=== PATIENT | male | born 1960 | race Caucasian/White ===

== ENCOUNTER 2016-05-21 11:22 | Emergency (ER) | payer OTHER ==
[2016-05-21 11:33] VITALS: BP 138/80; PULSE 97; TEMP 98.2; BMI 29.2
--- NOTE | 2016-05-21 11:42 | PDOC ---
History of Present Illness <Tato Dickinson - Last Filed: 05/21/16 12:30> - History of Present Illness Initial Comments: 05/21/16 12:58 The patient is a 56 year old male, with a significant past medical history of prostate CA and hypothyroidism, who presents to the emergency department with abdominal distention and in urinary retention since yesterday. The patient reports he has not urinated since 6pm last night. He states he is experiencing pain to his lower abdomen. The patient reports he was seen by Dr. aJcobo a week ago and is scheduled for a biopsy next week. He denies chest pain, shortness of breath, headache and dizziness. He denies fever, chills, nausea, vomit, diarrhea and constipation. He denies dysuria, urgency and hematuria. Allergies: NKDA Social history: denies toxic habits Armored Truck Driver: Dr. Jacobo Urologist: Dr. Polo <Dianne Brito - Last Filed: 05/21/16 13:03> - General Chief Complaint: Urinary Problem Stated Complaint: PAIN Time Seen by Provider: 05/21/16 11:40 Past History - Past Medical History Cancer: Yes (PROSTATE CA) Seizures: Yes - Psycho/Social/Smoking Cessation Hx Suicidal Ideation: No Smoking History: Never smoked Hx Alcohol Use: No Drug/Substance Use Hx: No <Tato Dickinson - Last Filed: 05/21/16 12:30> <Dianne Brito - Last Filed: 05/21/16 13:03> - Past Medical History Allergies/Adverse Reactions: Allergies Allergy/AdvReac Type Severity Reaction Status Date / Time No Known Allergies Allergy Verified 05/21/16 11:33 Review of Systems - Review of Systems Able to Perform ROS?: Yes Comments:: 05/21/16 12:58 GENERAL/CONSTITUTIONAL: No fever or chills. No weakness. HEAD, EYES, EARS, NOSE AND THROAT: No change in vision. No ear pain or discharge. No sore throat. CARDIOVASCULAR: No chest pain or shortness of breath. RESPIRATORY: No cough, wheezing, or hemoptysis. GASTROINTESTINAL: (+) lower abdominal pain. No nausea, vomiting, diarrhea or constipation. GENITOURINARY: (+) urinary retention, No dysuria, frequency, or change in urination. MUSCULOSKELETAL: No joint or muscle swelling or pain. No neck or back pain. SKIN: No rash NEUROLOGIC: No headache, vertigo, loss of consciousness, or change in strength/ sensation. ENDOCRINE: No increased thirst. No abnormal weight change. HEMATOLOGIC/LYMPHATIC: No anemia, easy bleeding, or history of blood clots. ALLERGIC/IMMUNOLOGIC: No hives or skin allergy. <Dianne Brito - Last Filed: 05/21/16 13:03> *Physical Exam - Vital Signs Last Vital Signs Temp Pulse Resp BP Pulse Ox 98.2 F 97 H 18 138/80 99 05/21/16 11:30 05/21/16 11:30 05/21/16 11:30 05/21/16 11:30 05/21/16 11:30 <Tato Dickinson - Last Filed: 05/21/16 12:30> - Vital Signs Last Vital Signs Temp Pulse Resp BP Pulse Ox 98.2 F 97 H 18 138/80 99 05/21/16 11:30 05/21/16 11:30 05/21/16 11:30 05/21/16 11:30 05/21/16 11:30 - Physical Exam Comments: 05/21/16 12:58 GENERAL: Pt appears very uncomfortable. Awake, alert, and fully oriented, in no acute distress HEAD: No signs of trauma EYES: PERRLA, EOMI, sclera anicteric, conjunctiva clear ENT: Auricles normal inspection, hearing grossly normal, nares patent, oropharynx clear without exudates. Moist mucosa NECK: Normal ROM, supple, no lymphadenopathy, JVD, or masses LUNGS: Breath sounds equal, clear to auscultation bilaterally. No wheezes, and no crackles HEART: Regular rate and rhythm, normal S1 and S2, no murmurs, rubs or gallops ABDOMEN:(+) distended abdomen is mildly tender. Soft, normoactive bowel sounds. No guarding, no rebound. No masses EXTREMITIES: Normal range of motion, no edema. No clubbing or cyanosis. No cords, erythema, or tenderness NEUROLOGICAL: Cranial nerves II through XII grossly intact. Normal speech, normal gait SKIN: Warm, Dry, normal turgor, no rashes or lesions noted. <Dianne Brito - Last Filed: 05/21/16 13:03> Medical Decision Making - Medical Decision Making 05/21/16 12:09 The patient is a 56 year old male who presents in urinary retention with abdominal distention since yesterday. The patients medical history is significant for Prostate CA and hypothyroidism I will obtain bladder scan. Bauer catheterization was attempted five times without success. I have called the patients oncologist, Dr. Jacobo, to determine whether or not the patients urologist will come see the patient in the ER. I will call the patients parts salesman/oncologist for urologist consult suggestion. Dr. Jacobo, patient's hemtologist, was called at 12:10 on the office phone ). I was informed Dr. Jacobo is at his other office today and was given the number to reach him. Dr. Jacobo was called at 12:12 at his [place] office ([phone]). After a few attempts Dr. Jacobo was contacted and the patient's case was discussed at 12:19. Dr. Jacobo was informed of the 5 failed attempts at bauer catheterization, and Dr. Jacobo states the patient's urologist, Dr. Polo, does not come to [facility]. Dr. Jacobo requests we contact our on-call urologist for bauer insertion and that we call Dr. Jacobo with updates regarding his patient. 05/21/16 12:24 Dr. Kelley, urologist on-call, was called at the office at 12:24 and the patient 's case was discussed. Dr. Lamas agrees to see the patient in the office as out-patient care. Dr. Jacobo was called at 12:30 with the updates the the patient's plan of care. Dr. Jacobo agrees with the plan of care with outpatient referral to Dr. Lamas and appreciated being kept informed. <Dianne Brito - Last Filed: 05/21/16 13:03> *DC/Admit/Observation/Transfer - Discharge Dispostion Admit: No - Attestations Physician Attestion: 05/21/16 11:41 I, Dr. Tato Dickinson, attest that this document has been prepared under my direction and personally reviewed by me in its entirety. I further attest, that it accurately reflects all work, treatment, procedures and medical decision -making performed by me. <Ttao Dickinson - Last Filed: 05/21/16 12:30> - Attestations Scribe Attestion: 05/21/16 13:03 Documentation prepared by Dianne Brito, acting as medical assistant for Tato Dickinson MD <Dianne Brito - Last Filed: 05/21/16 13:03> Diagnosis at time of Disposition: Acute urinary retention, Prostate CA - Referrals Referrals: Joseph Lombardi [Primary Care Provider] - Bari Lamas MD., [Staff Physician] - - Patient Instructions Printed Discharge Instructions: Prostate Cancer, DI for Urinary Retention in Men Additional Instructions: Raudel- Your Urologist does not come here to [facility]. We need a urologist to place the catheter to drain your bladder. Dr Bari Lamas is in his office across the street and can see you now. GO DIRECTLY TO HIS OFFICE NOW. Follow his instructions for follow up. He is expecting you.
[2016-05-21] MEDS ORDERED: LIDOCAINE HCL 2% JELLY 10 ML CARTRIDGE ONE (11:45)
[2016-05-21] MEDS ORDERED: morphine CARPU-JECT 4 MG/1 ML DISP.SYRIN ONE (12:09)
[2016-05-21] MEDS ORDERED: ONDANSETRON 4 MG/2 ML VIAL ONE (12:10)
[2016-05-21] MEDS ORDERED: ONDANSETRON 4 MG/2 ML VIAL IVPUSH ONE (12:28)
[2016-05-21] MEDS ORDERED: morphine CARPU-JECT 4 MG/1 ML DISP.SYRIN IVPUSH ONE (12:28)
== END 2016-05-21 13:09 | disposition home or self-care (01) ==
LOC: JER 11:22
PROC: 0T9B70Z Drainage of Bladder with Drainage Device, Via Natural or Artificial Opening (ICD-10-PCS; principal; 2016-05-21)
DX: N40.1 Benign prostatic hyperplasia with lower urinary tract symptoms (principal); C61 Malignant neoplasm of prostate; R33.8 Other retention of urine; E03.9 Hypothyroidism, unspecified
CPT/HCPCS: 99282-25

== ENCOUNTER 2016-06-18 06:35 | Day surgery (SDC) | payer OTHER ==
[2016-06-17 12:04] VITALS: BMI 29.2
[2016-06-18] MEDS ORDERED: PROPOFOL 20 ML ONE (07:30)
[2016-06-18] MEDS ORDERED: MIDAZOLAM HCL 2 MG/2 ML SINGLE DOSE VIAL ONE ×2 (07:30→09:01)
[2016-06-18] MEDS ORDERED: ceFAZolin SODIUM 1 GM VIAL IVPB ONE (08:24)
[2016-06-18] MEDS ORDERED: GENTAMICIN SO4 80 MG/2 ML VIAL IVPB ONE (08:24)
[2016-06-18] MEDS ORDERED: GENTAMICIN SO4 80 MG/2 ML VIAL ONE (08:28)
[2016-06-18] MEDS ORDERED: FUROSEMIDE 40 MG/4 ML INJECTABLE VIAL ONE (09:37)
[2016-06-18] MEDS ORDERED: oxyCODONE HCL 5 MG TABLET PO PRN (10:09)
--- NOTE | 2016-06-18 10:13 | OP ---
Operative Note - Note: Operative Date: 06/18/16 Pre-Operative Diagnosis: BPH with retention Operation: cysto/bipolar transurethral vaporization of prostate Findings: trilobar hyperplasia Post-Operative Diagnosis: Same as Pre-op Surgeon: Mckinley Canela Anesthesia: Spinal Estimated Blood Loss (mls): 25 Drains & Tubes with Location: 18fr coucil tip Operative Report Dictated: Yes
[2016-06-18] MEDS ORDERED: ELECTROLYTE-148 SOLN 1,000 ML IV SCH (10:15)
[2016-06-18] MEDS ORDERED: ONDANSETRON 4 MG/2 ML VIAL IVPUSH PRN (10:41)
[2016-06-18] MEDS ORDERED: ACETAMINOPHEN 325 MG TABLET (FP) PO PRN (10:41)
--- NOTE | 2016-06-19 09:01 | OP ---
DATE OF OPERATION: 06/18/2016 PREOPERATIVE DIAGNOSIS: Benign prostatic hypertrophy with urinary retention. POSTOPERATIVE DIAGNOSIS: Benign prostatic hypertrophy with urinary retention. PROCEDURE: Cystoscopy, transurethral vaporization of prostate. SURGEON: Mckinley Canela MD INDICATIONS: Patient is a 56-year-old male with enlarged prostate and urinary retention, also low-grade prostate cancer on active surveillance, who recently underwent retention, failed multiple warning trials despite the maximum medical therapy. After reviewing treatment options, patient would like to undergo transurethral vaporization of the prostate, possible transurethral resection of prostate in a bipolar fashion. Risks and benefits andalternative were discussed at length including risks of bleeding, infection, impotence, incontinence, stricture formation, potential persistence of urinary retention, potential need for additional procedures, potential injury to adjacent organs. DESCRIPTION OF PROCEDURE: After informed consent was obtained, the patient was taken to the OR, placed supine on the operating table. He was given a spinal anesthetic. He was prepped and draped in dorsal lithotomy position. The 26-sheath resectoscope was inserted into the urethra with visual obturator without difficulty. Anterior urethra was normal. Prostatic urethra was approximately 5 cm with a high bladder neck. The resectoscope could not reach into the bladder due to the elongated penis and concomitant erection. At this point, then, with the resectoscope situated just past the verumontanum, lateral lobe tissue and some of the tissue was vaporized circumferentially until an open channel was created. All bleeding sites were then fulgurated. Bladder neck tissue was not vaporized aggressively because of inability to get into the bladder and completely visualize the ureteral orifices. At this point, then, with wide-open channel created, resectoscope was then removed, and attempt at placing a coude Torres catheter was unsuccessful as well as a 3-way catheter was unsuccessful. So, a flexible cystoscope was inserted back into the urethra, and then, the bladder was identified. Ureteral orifices were identified at this point, too, just to confirm that there was no injury and no injury noted. At this point, a wire was advanced into the bladder, and over the wire, an 18-Yi Resighini-tip catheter was advanced, and the bladder was irrigated manually. [place]-tinged urine was retrieved. Patient was awoken from anesthesia and transferred to the recovery room in stable condition. There were no complications. ESTIMATED BLOOD LOSS: Approximately 25 mL. Lara [id number]
[2016-06-19 09:17] VITALS: BP 118/73; PULSE 78; TEMP 99
== END 2016-06-19 10:29 | disposition home or self-care (01) ==
LOC: JASUSAT 06:35 → JASU-SURG 06:35 → J6S 13:40 → JASUSAT 06-19 10:29
PROVIDERS: ATTEND Urology
PROC: 0VT08ZZ Resection of Prostate, Via Natural or Artificial Opening Endoscopic (ICD-10-PCS; principal; 2016-06-18 08:00)
DX: N40.1 Benign prostatic hyperplasia with lower urinary tract symptoms (principal); R33.8 Other retention of urine
CPT/HCPCS: 94760

== ENCOUNTER 2018-10-20 18:43 | Emergency (ER) | payer OTHER ==
--- NOTE | 2018-10-20 18:48 | PDOC ---
Rapid Medical Evaluation Time Seen by Provider: 10/20/18 18:46 Medical Evaluation: Allergies Allergy/AdvReac Type Severity Reaction Status Date / Time No Known Allergies Allergy Verified 10/23/17 16:40 10/20/18 18:46 I have performed a brief in-person evaluation of this patient. The patient presents with a chief complaint of: gross hematuria x "a few days" Pertinent physical exam findings: deferred I have ordered the following: urine, labs The patient will proceed to the ED for further evaluation. Discharge Disposition - Diagnosis Hematuria - Referrals Referrals: Syed Dunn MD [Primary Care Provider] - - Patient Instructions - Post Discharge Activity
[2018-10-20 18:52] VITALS: TEMP 98.1; BMI 32.1
--- NOTE | 2018-10-20 19:52 | PDOC ---
History of Present Illness - General Chief Complaint: Hematuria Stated Complaint: BLOOD IN THE URINE Time Seen by Provider: 10/20/18 18:46 History Source: Patient Exam Limitations: No Limitations - History of Present Illness Initial Comments: 10/20/18 19:50 Raudel Jain is a 58M with PMH prostate CA s/p transurethral vaporization of prostate as well as hypothyroidism presenting with 3 days of worsening hematuria. States that he has had blood in his urine for the past 3 days, slowly getting worse to the point of now having clots. Denies dysuria, difficulty urinating, burning sensation with urination, or discharge. Denies fever/chills, N/V, C/D, blood in stools, C/P, SOB, headache, dizziness, weakness. Says he has a rumbling sensation in his stomach as if there is water trying to escape, but denies flank pain or back pain. Says he takes a medication for Alzheimer's, 10mg each day, but is unsure of what it is. Past History - Past Medical History Allergies/Adverse Reactions: Allergies Allergy/AdvReac Type Severity Reaction Status Date / Time No Known Allergies Allergy Verified 10/20/18 18:50 Home Medications: Ambulatory Orders Aspirin [Aspirin EC] 81 mg PO DAILY 06/17/16 Levothyroxine [Synthroid -] 88 mcg PO DAILY 06/17/16 Anemia: No Asthma: No Cancer: Yes (PROSTATE CA) Cardiac Disorders: No CVA: No COPD: No CHF: No Dementia: No Diabetes: No GI Disorders: No Disorders: No HTN: No Hypercholesterolemia: No Liver Disease: No Seizures: (DENIES) Thyroid Disease: Yes Other medical history: enlarged prostate had sx - Surgical History Abdominal Surgery: No Appendectomy: No Cardiac Surgery: No Cholecystectomy: No Lung Surgery: No Neurologic Surgery: No Orthopedic Surgery: No - Suicide/Smoking/Psychosocial Hx Smoking History: Never smoked Have you smoked in the past 12 months: No Information on smoking cessation initiated: No Hx Alcohol Use: No Drug/Substance Use Hx: No Substance Use Type: None Hx Substance Use Treatment: No Review of Systems - Review of Systems Able to Perform ROS?: Yes Is the patient limited Georgian proficient: No Constitutional: No: Chills, Fever, Weakness HEENTM: No: Blurred Vision, Recent change in vision, Nose Congestion, Tinnitus, Hearing Loss Respiratory: No: Cough, Shortness of Breath Cardiac (ROS): No: Chest Pain, Irregular Heart Rate, Palpitations ABD/GI: No: Constipated, Diarrhea, Nausea, Poor Appetite, Poor Fluid Intake, Vomiting, Abdominal cramping : Yes: Hematuria. No: Burning, Dysuria, Discharge, Frequency, Flank Pain, Incontinence, Pain Musculoskeletal: No: Muscle Pain, Muscle Weakness Integumentary: No: Bruising, Change in Color, Rash Neurological: No: Headache, Numbness, Paresthesia, Weakness, Dizziness Endocrine: No: Symptoms Reported Hematologic/Lymphatic: No: Symptoms Reported All Other Systems: Reviewed and Negative *Physical Exam - Vital Signs Last Vital Signs Temp Pulse Resp BP Pulse Ox 98.1 F 64 17 126/84 100 10/20/18 18:47 10/20/18 18:47 10/20/18 18:47 10/20/18 18:47 10/20/18 18:47 - Physical Exam General Appearance: Yes: Nourished, Appropriately Dressed. No: Apparent Distress HEENT: positive: EOMI, JANNETH, Normal Voice, Symmetrical. negative: Scleral Icterus (R), Scleral Icterus (L), Muffled/Hoarse voice, Pharyngeal Erythema, Tonsillar Exudate, Tonsillar Erythema, Rhinorrhea, Hearing Decreased Neck: positive: Normal Thyroid, Supple. negative: Tender, Decreased range of motion, Lymphadenopathy (R), Lymphadenopathy (L) Respiratory/Chest: positive: Lungs Clear, Normal Breath Sounds. negative: Respiratory Distress, Accessory Muscle Use, Crackles, Rales, Rhonchi Cardiovascular: positive: Regular Rhythm, Regular Rate. negative: Edema, Murmur Gastrointestinal/Abdominal: positive: Normal Bowel Sounds, Flat, Soft. negative : Tender, Organomegaly, Distended, Guarding, Rebound Male Genitalia: positive: normal genitalia, hematuria (fruit punch colored urine ). negative: discharge, testicular tenderness, testicular mass, inguinal hernia Musculoskeletal: positive: Normal Inspection. negative: CVA Tenderness Extremity: positive: Normal Capillary Refill, Normal Inspection, Normal Range of Motion, Pelvis Stable. negative: Tender, Pedal Edema, Swelling Integumentary: positive: Normal Color, Dry, Warm Neurologic: positive: Fully Oriented, Alert, Normal Mood/Affect, Normal Response ED Treatment Course - LABORATORY CBC & Chemistry Diagram: 10/20/18 20:00 10/20/18 20:00 Medical Decision Making - Medical Decision Making 10/20/18 19:50 Raudel Jain is a 58M with PMH prostate CA s/p transurethral vaporization of prostate as well as hypothyroidism presenting with 3 days of worsening hematuria. Patient is comfortable and otherwise stable hemodynamically, but is reporting painless gross hematuria. Ddx includes UTI/hemorrhagic cystitis, prostatitis, renal calculus, pyelonephritis, and CA of the prostate, bladder, or kidneys. Will evaluate via: CMP CBC UA/UC Normal abdomen exam, low threshold to get CT abd to evaluate for pathology. 10/20/18 20:56 UA shows 3+ microscopic hematuria, no presence of gross blood is a good sign, no solid evidence of UTI. Labs all WNL. Will discharge home with close urology follow-up with Dr. Trejo with Urology given hematuria, outpatient evaluation of possible cystitis vs. calculus vs. underlying CA. 10/20/18 21:00 Patient reports will see his other urologist tomorrow. Showed another red urine sample and was concerned, but counseled that this is okay and he is stable to leave. Discussed return precautions. *DC/Admit/Observation/Transfer Diagnosis at time of Disposition: Hematuria Qualifiers: Hematuria type: asymptomatic microscopic Qualified Code(s): R31.21 - Asymptomatic microscopic hematuria - Discharge Dispostion Disposition: HOME Condition at time of disposition: Stable Decision to Admit order: No - Referrals Referrals: Syed Dunn MD [Primary Care Provider] - Mckinely Canela MD [Staff Physician] - - Patient Instructions Printed Discharge Instructions: Blood in Urine, DI for Hematuria Additional Instructions: Today you were evaluated for blood in your urine. We did some blood labs that do not show any problems in your blood. We also evaluated your urine and found that it was not bloody, but there was some trace amounts of blood in your urine , and no infection was noted in your bladder. The blood in your urine is concerning for an infection in your bladder, a kidney stone, or an issue related to your prostate. Because you have been having blood in your urine, please follow-up with Dr. Canela in the next 3 days so that a urologist can better evaluate you. Please see your primary doctor in the next 7 days for further care. If you have any worsening bleeding in in your urine, become unable to urinate, have abdominal pain, nausea, vomiting, fever, weakness, dizziness, or any other new or concerning symptoms, please return to the closest emergency room immediately. - Post Discharge Activity
[2018-10-20 20:07] LABS: BASO % 0.8 % (0-2.0); HEMOGLOBIN 14.3 GM/dL (11.7-16.9); LYMPH % 32.7 % (8-40); MCH 28.1 pg (25.7-33.7); MCHC 33.3 g/dl (32.0-35.9); MEAN CELL VOLUME 84.3 fl (80-96); MEAN PLT VOLUME 7.9 fl (7.5-11.1); NEUT % 61.5 % (42.8-82.8); PLATELET COUNT 244 K/MM3 (134-434); RDW 14.1 % (11.9-15.9); WHITE BLOOD COUNT 7.8 K/mm3 (4.0-10.0)
[2018-10-20 20:32] LABS: EPI CELLS 0.3 /HPF (0-5/HPF); HYALINE CASTS 0 /lpf (0-8); PH,URINE 6.5 (5.0-8.0); URINE APPEARANCE CLEAR; URINE BACTERIA 2.2 /hpf (NEGATIVE); URINE BILIRUBIN NEGATIVE (NEGATIVE); URINE COLOR YELLOW; URINE GLUCOSE (UA) NEGATIVE (NEGATIVE); URINE KETONE NEGATIVE (NEGATIVE); URINE LEUK ESTERASE NEGATIVE (NEGATIVE); URINE NITRITE NEGATIVE (NEGATIVE); URINE PROTEIN NEGATIVE (NEGATIVE); URINE RBC 232 /hpf (0-4); URINE UROBILINOGEN 0.2 mg/dL (0.2-1.0); URINE WBC 1 /hpf (0-5)
--- NOTE | 2018-10-20 20:35 | PDOC ---
Attending Attestation - Resident Resident Name: Barry Oliveira - ED Attending Attestation I have performed the following: I have examined & evaluated the patient, The case was reviewed & discussed with the resident, I agree w/resident's findings & plan, Exceptions are as noted - HPI HPI: 10/20/18 20:35 58M transurethral vaporization of prostate, hypothyroid here with 3 days of hematuria, notes having seen some clots but able to urinate w/o issue. No other complaints. - Physicial Exam PE: 10/20/18 23:20 Agree with exam as documented by resident - Medical Decision Making 10/20/18 23:20 58M hematuria, non-obstructive, no recent illness/infection UA +for blood, no infection, no proteinuria Will dc with close f/u with urology
[2018-10-20 20:40] LABS: ALBUMIN 4.3 g/dl (3.4-5.0); BILIRUBIN,TOTAL 0.3 mg/dL (0.2-1); BLOOD UREA NITROGEN 17.2 mg/dL (7-18); POTASSIUM 3.9 mmol/L (3.5-5.1)
[2018-10-20 21:59] VITALS: BP 123/89; PULSE 66
== END 2018-10-20 21:20 | disposition home or self-care (01) ==
LOC: JER 18:43
DX: R31.21 Asymptomatic microscopic hematuria (principal); Z85.46 Personal history of malignant neoplasm of prostate
CPT/HCPCS: 36415; 80053; 81003; 85025; 87086; 99283-25

== ENCOUNTER 2020-11-22 21:13 | Emergency (ER) | payer OTHER ==
[2020-11-22 21:18] VITALS: BP 161/80; PULSE 75; TEMP 97; BMI 27.6
== END 2020-11-22 22:54 | disposition home or self-care (01) ==
LOC: JER 21:13
DX: R13.10 Dysphagia, unspecified (principal)
CPT/HCPCS: 99283-25

== ENCOUNTER 2023-11-04 21:59 | Emergency (ER) | payer OTHER ==
[2023-11-04 22:21] VITALS: BMI 29.1
[2023-11-04] MEDS ORDERED: ACETAMINOPHEN INJECTION 100 ML ONE (23:55)
[2023-11-05] MEDS: ACETAMINOPHEN 1000 MG/100 ML BAG IVPB ONE (00:24)
[2023-11-05 00:50] LABS: HEMATOCRIT 46.2 % (35.4-49); HEMOGLOBIN 15.3 GM/dL (11.7-16.9); MCH 27.4 pg (25.7-33.7); MCHC 33.1 g/dl (32.0-35.9); MEAN CELL VOLUME 82.6 fl (80-96); MEAN PLT VOLUME 7.9 fl (7.5-11.1); PLATELET COUNT 255 10^3/uL (134-434); WHITE BLOOD COUNT 6.4 K/mm3 (4.0-10.0)
[2023-11-05 01:03] VITALS: RESP 16
[2023-11-05 01:09] LABS: POTASSIUM 5.4 mmol/L (3.5-5.1)
[2023-11-05 01:11] LABS: CALCIUM 10.1 mg/dL (8.5-10.1)
[2023-11-05 01:12] LABS: ALBUMIN 4.1 g/dl (3.4-5.0); BLOOD UREA NITROGEN 11.5 mg/dL (7-18)
[2023-11-05 01:16] LABS: BILIRUBIN,TOTAL 0.5 mg/dL (0.2-1); TOT PROT 8.7 g/dl (6.4-8.2)
[2023-11-05 02:07] LABS: HIV INTERPRETATION NEGATIVE (NEGATIVE)
[2023-11-05] MEDS ORDERED: AZITHROMYCIN IVPB 500 MG/250 ML BAG IVPB ONE (03:51)
[2023-11-05] MEDS ORDERED: CEFTRIAXONE 1 GM/50 ML BAG ONE (03:51)
[2023-11-05 04:04] LABS: ALBUMIN 3.4 g/dl (3.4-5.0); CALCIUM 9.4 mg/dL (8.5-10.1)
[2023-11-05 04:07] LABS: CREATININE 0.8 mg/dL (0.55-1.3)
[2023-11-05 04:09] LABS: BILIRUBIN,TOTAL 0.3 mg/dL (0.2-1); TOT PROT 6.9 g/dl (6.4-8.2)
[2023-11-05 04:30] LABS: POTASSIUM 4.1 mmol/L (3.5-5.1)
[2023-11-05] MEDS: AZITHROMYCIN IVPB 500 MG/250 ML BAG IVPB SCH (04:48)
[2023-11-05 06:00] VITALS: TEMP 97.9
[2023-11-05] MEDS ORDERED: AZITHROMYCIN IVPB 500 MG/250 ML BAG IVPB SCH (10:00)
[2023-11-05 15:59] VITALS: BP 130/72; PULSE 87
== END 2023-11-05 16:05 | disposition home or self-care (01) ==
LOC: JER 21:59
PROC: 3E033NZ Introduction of Analgesics, Hypnotics, Sedatives into Peripheral Vein, Percutaneous Approach (ICD-10-PCS; principal; 2023-11-05)
PROC: 3E03329 Introduction of Other Anti-infective into Peripheral Vein, Percutaneous Approach (ICD-10-PCS; 2023-11-05)
DX: J20.9 Acute bronchitis, unspecified (principal); R05.9 Cough, unspecified; R04.0 Epistaxis; R06.9 Unspecified abnormalities of breathing; Z20.822 Contact with and (suspected) exposure to COVID-19
CPT/HCPCS: 0241U-QW; 36415; 71045-TC-FY; 71275-TC; 80053; 84484; 85027; 85379; 86803; 87389; 93005; 93010; 96374; 96375; 99285-25; J0131